=== PATIENT | female | born 1950 | race Caucasian/White ===

== ENCOUNTER → 2017-10-10 14:12 | Outpatient (CLI) | payer MEDICARE, OTHER, SELFPAY ==
--- NOTE | 2017-10-10 14:16 | DI.RAD.S_ITS ---
PROCEDURE: XR KNEE RT 3V INDICATIONS: RIGHT KNEE PAIN TECHNIQUE: 30 views of the knee were acquired. COMPARISON: None. FINDINGS: Bones: No fractures or dislocations. No suspicious bony lesions. There is severe lateral narrowing of the patellofemoral knee joint with [id number] contact and periventricular osteophyte formation. Mild narrowing of the medial femorotibial joint. Soft tissues: Small joint effusion. No suspicious soft tissue calcifications. IMPRESSION: 1. Severe lateral patellofemoral knee joint degeneration small effusion. Dictated by: John CAGE Interpreted: Yenny Newton MD on 10/10/2017 at 14:46 Approved by: Yenny Newton M.D. on 10/10/2017 at 16:54
== END ==
PROVIDERS: Visit Provider Physician Assistant
DX: M17.11 Unilateral primary osteoarthritis, right knee (principal); M25.561 Pain in right knee
CPT/HCPCS: 73562

== ENCOUNTER → 2018-05-21 09:37 | Outpatient (CLI) | payer MEDICARE, OTHER, SELFPAY | PROVIDERS: PCP Family Medicine; Visit Provider Family Medicine | DX: E03.9 Hypothyroidism, unspecified (principal) | CPT/HCPCS: 36415; 84443 ==

== ENCOUNTER → 2019-04-03 12:33 | Outpatient (CLI) | payer MEDICARE, OTHER, SELFPAY ==
[2019-04-03 13:22] LABS: Cholesterol 316 mg/dL (140-199); Glucose 98 mg/dL (80-110); HDL Cholesterol 91 mg/dL (40-60); LDL Cholesterol Calculated 213 mg/dL (<100); Triglycerides 61 mg/dL (35-150)
[2019-04-03 13:52] LABS: Thyroid Stimulating Hormone 4.46 uIU/mL (0.47-4.68)
== END ==
PROVIDERS: PCP Family Medicine; Visit Provider Family Medicine
DX: Z13.220 Encounter for screening for lipoid disorders (principal); Z13.1 Encounter for screening for diabetes mellitus; E03.9 Hypothyroidism, unspecified
CPT/HCPCS: 36415; 80061; 82947; 84443

== ENCOUNTER → 2019-05-01 13:37 | Outpatient (CLI) | payer MEDICARE, OTHER, SELFPAY ==
--- NOTE | 2019-05-01 13:38 | DI.ECHO.S_ITS ---
[facility]---------+ [facility] +---------+ : : [address] : [address] : : : : [id number] : : : : Phone: [phone] +---------+ Echocardiogram Report + + :Name: PENNY GASPAR V Study Date: 05/01/2019 Height: 62 in : :[facility] Weight: 155 lb : : Gender: Female BSA: 1.7 m2 : :: 1950 Age: 69 yrs BP: 140/90 mmHg: :Reason For Study: Aortic valve stenosis : : Performed By: Zee Velazquez : :Referring: MARIA LUISA ZHANG : + + Interpretation Summary There is moderate aortic valve stenosis. It appears mild to moderate by visual evaluation. Peak velocity is 2.7 m/s with dimensionless index of 0.36. The valve area calculation by continuity equation is probably underestimated related to LVOT Doppler signal. The valve area by planimetry is 1.4 bevel face stoner and polisher?. The indexed area is 0.82 bevel face stoner and polisher?/mA?. Visually there is no significant aortic valve stenosis either. Normal LV ejection fraction and grade 1 diastolic dysfunction. Pulmonary artery pressures cannot be estimated because of the lack of a measurable TR jet velocity but the IVC suggests a CVP of around 3 mmHg. Procedure: A two-dimensional transthoracic echocardiogram with color flow and Doppler was performed. The study quality was technically adequate. There is no prior echocardiogram noted for this patient. The patient was in normal sinus rhythm during the exam. Left Ventricle: The left ventricle is normal in size, wall thickness, and systolic function without any focal wall motion abnormalities. The ejection fraction is estimated to be 60-65%. Diastolic parameters suggest a relaxation abnormality of the left ventricle, consistent with probable normal filling pressures. Right Ventricle: The right ventricle is normal size. Right ventricular systolic function is normal by visual assessment. Atria: The left atrium is mildly dilated. Right atrial size is normal. There is no Doppler evidence for an interatrial shunt. Mitral Valve: The mitral valve leaflets appear mildly thickened, but open well. There is slight calcification extending into the subvalvular apparatus. There is mild mitral annular calcification. There is no mitral regurgitation noted. Aortic Valve: The aortic valve appears trileaflet with nodular calcification. The calculated aortic valve area is 1.0 cm2. The aortic valve area is 1.4 centimeters squared by planimetry. The peak aortic velocity is 2.7 m/sec. The aortic valve mean gradient is 18 mmHg. Severity ratio is 0.36. The aortic valve area indexed to the BSA is 0.60 . There is mild aortic regurgitation. Tricuspid Valve: The tricuspid valve leaflets are thin and pliable. There is trace tricuspid regurgitation. Pulmonary artery pressures cannot be estimated because of the lack of a measurable TR jet velocity but the IVC suggests a CVP of around 3 mmHg. Pulmonic Valve: The pulmonic valve is normal in structure and function. There is trace pulmonic regurgitation. Great Vessels: The aortic root is normal size. The ascending aorta is normal in size. The aortic arch is at the upper limits of normal in size. The IVC is of normal diameter and collapses greater than 50% with a sniff. This suggests a low right atrial pressure of 3 mm Hg. Pericardium/ Pleura There is no pericardial effusion. There is no pleural effusion. MMode/2D Measurements & Calculations LVIDd: 4.3 cm LVOT diam: 1.9 cm LVIDs: 2.2 cm Ao root diam: 3.3 cm FS: 49.1 % Aortic Jxn: 2.7 cm IVSd: 0.92 cm asc Aorta Diam: 3.4 cm LVPWd: 0.71 cm Ao Arch Diam (Prox Trans): 3.1 cm LV couch. diameter/BSA (cm/m^2): 2.5 LV sys. diameter/BSA (cm/m^2): 1.3 LA dimension: 3.9 cm RA long axis: 4.3 cm LA A2 area: 17.8 cm2 RA area: 14.1 cm2 LA A4 area: 18.4 cm2 RA vol: 38.9 ml LA length (vol): 4.8 cm RA : 22.6 ml/m2 LA vol: 58.3 ml IVC diam: 1.2 cm LA vol index: 34.0 ml/m2 RVDd major: 5.3 cm RVD1 (basal): 2.8 cm RVD2 (mid): 2.5 cm MIGUELITO (plan): 1.4 cm2 Doppler Measurements & Calculations Ao V2 max: 261.4 cm/sec LVOT Max Clemente: 89.4 cm/sec Ao V2 mean: 187.3 cm/sec LV V1 max P.2 mmHg Ao max P.4 mmHg LV V1 VTI: 19.4 cm Ao mean P.9 mmHg MIGUELITO(I,D): 1.0 cm2 Ao V2 VTI: 53.3 cm MIGUELITO(V,D): 0.97 cm2 sev ratio: 0.36 MIGUELITO indexed to BSA (cm^2/m^2): 0.60 MV E max clemente: 82.9 cm/sec TR max clemente: 207.8 cm/sec MV A max clemente: 119.9 cm/sec TR max P.3 mmHg MV E/A: 0.69 PA V2 max: 104.2 cm/sec Med Peak E' Clemente: 4.9 cm/sec PA V2 mean: 70.9 cm/sec E/E' med: 16.8 PA mean P.3 mmHg Lat Peak E' Clemente: 6.1 cm/sec PA Accel Time: 0.19 sec E/E' lat: 13.6 E/e' average: 15.2 MV dec time: 0.26 sec MV P1/2t: 77.0 msec MV P1/2t max clemente: 83.3 cm/sec SV(LVOT): 55.1 ml MVA(P1/2t): 2.9 cm2 Electronically signed by: Cornel Johns M.D. on Reading Physician:05/01/2019 07:09 PM
== END ==
PROVIDERS: PCP Family Medicine; Visit Provider Family Medicine
DX: I35.2 Nonrheumatic aortic (valve) stenosis with insufficiency (principal)
CPT/HCPCS: 93306

== ENCOUNTER → 2019-10-22 09:31 | Outpatient (CLI) | payer MEDICARE, OTHER, SELFPAY ==
[2019-10-22 11:20] LABS: Cholesterol 222 mg/dL (140-199); HDL Cholesterol 75 mg/dL (40-60); LDL Cholesterol Calculated 134 mg/dL (<100); Triglycerides 63 mg/dL (35-150)
[2019-10-22 11:49] LABS: Thyroid Stimulating Hormone 3.88 uIU/mL (0.47-4.68)
== END ==
PROVIDERS: PCP Family Medicine; Referring Provider Family Medicine; Visit Provider Family Medicine
DX: E03.9 Hypothyroidism, unspecified (principal); E78.5 Hyperlipidemia, unspecified
CPT/HCPCS: 36415; 80061; 84443

== ENCOUNTER → 2021-03-09 08:40 | Outpatient (CLI) | payer MEDICARE, OTHER, SELFPAY ==
[2021-03-09 09:36] LABS: Alanine Aminotransferase 31 IU/L (<35); Albumin 4.2 g/dL (3.5-5.0); Albumin Globulin Ratio 1.4 (1.0-2.8); Alkaline Phosphatase 109 U/L (38-126); Aspartate Aminotransferase 34 IU/L (14-36); BUN Creatinine Ratio 14.9 (6-22); Bilirubin Total 1.2 mg/dL (0.2-1.3); Blood Urea Nitrogen 14 mg/dL (7-17); Calcium 9.4 mg/dL (8.4-10.2); Carbon Dioxide 29 mmol/L (22-32); Chloride 102 mmol/L (98-107); Cholesterol 242 mg/dL (140-199); Estimated Glomerular Filt Rate 58.4 mL/min (>60); Globulin 2.9 g/dL (1.7-4.1); Glucose 94 mg/dL (80-110); HDL Cholesterol 93 mg/dL (40-60); HEMOLYSIS < 15 (0-50); LDL Cholesterol Calculated 136 mg/dL (<100); Potassium 4.3 mmol/L (3.4-5.1); Sodium 137 mmol/L (137-145); Total Protein 7.1 g/dL (6.3-8.2); Triglycerides 64 mg/dL (35-150)
[2021-03-09 10:03] LABS: TSH w/ Reflex to FT4 4.32 uIU/mL (0.47-4.68)
== END ==
PROVIDERS: PCP Family Medicine; Referring Provider Family Medicine; Visit Provider Family Medicine
DX: E03.9 Hypothyroidism, unspecified (principal); I35.0 Nonrheumatic aortic (valve) stenosis
CPT/HCPCS: 36415; 80053; 80061; 84443

== ENCOUNTER → 2021-06-21 14:29 | Outpatient (CLI) | payer MEDICARE, OTHER, SELFPAY ==
[2021-06-21 15:44] LABS: TSH w/ Reflex to FT4 2.38 uIU/mL (0.47-4.68)
[2021-06-22 20:45] LABS: Anti Thyroglobulin Antibody <1.0 IU/mL (0.0-0.9); Thyroid Peroxidase Antibodies <8 IU/mL (0-34)
== END ==
PROVIDERS: PCP Family Medicine; Referring Provider Family Medicine; Visit Provider Family Medicine
DX: E03.9 Hypothyroidism, unspecified (principal)
CPT/HCPCS: 36415; 84443; 86376; 86800

== ENCOUNTER → 2021-08-03 09:11 | Outpatient (CLI) | payer MEDICARE, OTHER, SELFPAY ==
[2021-08-03 10:24] LABS: Add Manual Diff / Slide Review NO; Basophils Absolute Auto 0 /uL (0-100); Basophils Percent Auto 0.8 % (0-2); Eosinophils Absolute Auto 300 /uL (0-450); Eosinophils Percent Auto 6.8 % (2-4); Hematocrit 41.2 % (36-46); Hemoglobin 14.3 g/dL (12.0-16.0); Lymphocytes Absolute Auto 1500 /uL (1100-4500); Lymphocytes Percent Auto 33.5 % (25-40); Mean Corpuscular HGB Conc 34.7 % (30-36); Mean Corpuscular Hemoglobin 32.2 PG (26-34); Mean Corpuscular Volume 92.9 fL (80-100); Monocytes Absolute Auto 400 /uL (0-900); Monocytes Percent Auto 7.8 % (3-14); Neutrophils Absolute Auto 2300 /uL (1500-7000); Neutrophils Percent Auto 51.1 % (50-75); Platelet Count 211 X10^3/uL (150-400); Red Blood Cell Count 4.43 X10^6/uL (4.0-5.2); Red Cell Distribution Width 13.8 % (11.6-14.8); White Blood Cell Count 4.6 X10^3/uL (4.5-11.0)
[2021-08-03 10:44] LABS: Hemoglobin A1C% w Est Avg Glu 4.9 % (4.0-6.0)
[2021-08-03 10:52] LABS: BUN Creatinine Ratio 15.3 (6-22); Blood Urea Nitrogen 15 mg/dL (7-17); Calcium 9.1 mg/dL (8.4-10.2); Carbon Dioxide 29 mmol/L (22-32); Chloride 103 mmol/L (98-107); Estimated Glomerular Filt Rate 55.6 mL/min (>60); Glucose 92 mg/dL (80-110); HEMOLYSIS < 15 (0-50); Potassium 4.5 mmol/L (3.4-5.1); Sodium 137 mmol/L (137-145)
== END ==
PROVIDERS: PCP Family Medicine; Referring Provider Family Medicine; Visit Provider Family Medicine
DX: E16.2 Hypoglycemia, unspecified (principal); E03.9 Hypothyroidism, unspecified
CPT/HCPCS: 36415; 80048; 83036; 85025

== ENCOUNTER → 2022-01-29 15:52 | Outpatient (CLI) | payer MEDICARE, OTHER, SELFPAY ==
--- NOTE | 2022-01-29 | DI.MG.S_ITS ---
BILATERAL DIGITAL SCREENING MAMMOGRAM 3D/2D WITH CAD: 01/29/2022 CLINICAL: Routine screening. Comparison is made to exams dated: 01/05/2018 mammogram, 12/16/2014 mammogram, and 01/21/2017 mammogram - outside location. Both breasts are heterogeneously dense, which may obscure small masses (category c / 51-75% glandular tissue). Current study was also evaluated with a Computer Aided Detection (CAD) system. There are benign vascular calcifications in both breasts. No significant masses, calcifications, or other findings are seen in either breast. There has been no significant interval change. IMPRESSION: BENIGN There is no mammographic evidence of malignancy. A 1 year screening mammogram is recommended. Based on the Tyrer Cuzick model (a risk assessment model) the patient's lifetime risk is 5.2% and her 10 year risk is 4.3%. According to the ACR, ACS, and NCCN guidelines, an annual breast MRI exam along with mammogram is recommended if the patient's lifetime risk is 20% or greater. This exam was interpreted at Station ID: [id number]. NOTE: For mammograms, a report in lay terms will be sent to the patient. Approximately 15% of breast malignancies will not be visualized mammographically. In the management of a palpable breast mass, a negative mammogram must not discourage biopsy of a clinically suspicious lesion. Electronically Signed By: Naren marquis/yesica:01/30/2022 07:54:19 letter sent: Normal Exam ACR BI-RADS Category 2: Benign Finding(s) 3342F
== END ==
PROVIDERS: PCP Family Medicine; Referring Provider Family Medicine; Visit Provider Family Medicine
DX: Z12.31 Encounter for screening mammogram for malignant neoplasm of breast (principal)
CPT/HCPCS: 77063; 77067

== ENCOUNTER → 2022-06-28 08:21 | Outpatient (CLI) | payer MEDICARE, OTHER, SELFPAY ==
[2022-06-28 09:53] LABS: Alanine Aminotransferase 20 IU/L (<35); Albumin 3.9 g/dL (3.5-5.0); Albumin Globulin Ratio 1.4 (1.0-2.8); Alkaline Phosphatase 73 U/L (38-126); Aspartate Aminotransferase 31 IU/L (14-36); BUN Creatinine Ratio 12.1 (6-22); Bilirubin Total 1.2 mg/dL (0.2-1.3); Blood Urea Nitrogen 11 mg/dL (7-17); Calcium 8.6 mg/dL (8.4-10.2); Carbon Dioxide 29 mmol/L (22-32); Chloride 99 mmol/L (98-107); Cholesterol 225 mg/dL (140-199); Estimated Glomerular Filt Rate > 60 mL/min (>60); Globulin 2.7 g/dL (1.7-4.1); Glucose 88 mg/dL (80-110); HDL Cholesterol 78 mg/dL (40-60); HEMOLYSIS < 15 (0-50); LDL Cholesterol Calculated 133 mg/dL (<100); Sodium 136 mmol/L (137-145); Total Protein 6.6 g/dL (6.3-8.2); Triglycerides 72 mg/dL (35-150)
[2022-06-28 10:17] LABS: TSH w/ Reflex to FT4 3.29 uIU/mL (0.47-4.68)
== END ==
PROVIDERS: PCP Family Medicine; Referring Provider Family Medicine; Visit Provider Family Medicine
DX: E78.5 Hyperlipidemia, unspecified (principal); E03.9 Hypothyroidism, unspecified
CPT/HCPCS: 36415; 80053; 80061; 84443

== ENCOUNTER → 2022-07-19 11:11 | Outpatient (CLI) | payer MEDICARE, OTHER, SELFPAY ==
--- NOTE | 2022-07-19 11:56 | DI.DEXA.S_ITS ---
Indication: postmenopausal; screening for osteoporosis; Referring Provider: MARIA LUISA ZHANG Study: Bone densitometry was performed. Exam Date: July 19, 2022 Accession number: [id number] Bone Density: Region BMD T-score Z-score Classification AP Spine(L1, L2, L3) 0.776 -2.2 0.1 Osteopenia Femoral Neck (Left) 0.564 -2.6 -0.5 Osteoporosis Total Hip (Left) 0.785 -1.3 0.5 Osteopenia Femoral Neck (Right) 0.592 -2.3 -0.3 Osteopenia Total Hip (Right) 0.789 -1.3 0.5 Osteopenia Total Hip Mean 0.787 -1.3 0.5 Osteopenia World Health Organization criteria for BMD impression classify patients as: Normal (T-score at or above -1.0), Osteopenia (T-score between -1.0 and -2.5), or Osteoporosis (T-score at or below -2.5). Impression: The patient has osteoporosis, based on the Left Femoral Neck T-score. Discussion: INCREASED RISK OF FRACTURE. BONE DENSITY IS UNDESIRABLY LOW AT ONE OR MORE SKELETAL SITES, CONSISTENT WITH POSTMENOPAUSAL OSTEOPOROSIS. This patient's lowest T-score meets the World Health Organization's (WHO) criteria for osteoporosis at one or more sites (T-score -2.5 or below). In untreated patients, the risk of osteoporotic fracture increases approximately two-fold for each 1.0 SD decrease in T-score. Low bone density is not the only risk factor for fracture; also consider factors such as patient's age, frailty or poor health, risk of falling, risk of injury, previous osteoporotic fracture, family history of osteoporosis, cigarette smoking, low body weight, etc. Not everyone with low bone mineral density has osteoporosis; osteomalacia and other metabolic bone disorders should also be considered. Patients who have osteoporosis should be evaluated for specific diseases and conditions (secondary causes) that may cause or contribute to bone loss. The [place] Association of Clinical Endocrinologists (AACE) and National Osteoporosis Foundation (NOF) recommend pharmacologic intervention for all postmenopausal women whose T-score is in this range. The patient should follow a healthful lifestyle (good nutrition with adequate calcium and vitamin D, and appropriate weight-bearing exercise). Follow-Up: Consider a repeat BMD and Vertebral Fracture Assessment (VFA) exam in 2 years or sooner if medically necessary, to reassess this patient's status. Reported by: Yannick Valenzuela M.D. on 07/19/2022 12:07:00 PM.
== END ==
PROVIDERS: PCP Family Medicine; Referring Provider Family Medicine; Visit Provider Family Medicine
DX: M81.0 Age-related osteoporosis without current pathological fracture (principal); Z13.820 Encounter for screening for osteoporosis; Z78.0 Asymptomatic menopausal state
CPT/HCPCS: 77080

== ENCOUNTER 2022-10-11 11:06 | Day surgery (SDC) | payer MEDICARE, OTHER, SELFPAY ==
--- NOTE | 2022-10-11 | PATH_ITS ---
[facility] Accession Number: [id number] No. of containers..01 Tissue . 01 Material submitted: . rectum - RECTAL POLYP . 01 Diagnosis: Rectal Polyps: Hyperplastic polyp x3. JOVI 10/17/2022 1157 Local . 01 Electronically signed: . Saul Lambert MD, PhD, Pathologist NPI- [id number] . 01 Gross description: . RECTAL POLYP: Received in formalin are 3 fragment(s) of mathews, soft tissue measuring 0.4 x 0.2 x 0.2 cm to 0.8 x 0.4 x 0.3 cm submitted entirely in 1 cassette(s) /LELE 10/15/2022 1857 Local . 01 Pathologist provided ICD-10: K62.1 . 01 CPT . 071768 Specimen Comment: A courtesy copy of this report has been sent to [phone] Performed at: 01 [facility] [address] [place] [address], [place], [place] [id number] MD Jasvir Campoverde MD Phone: [phone]
[2022-10-11 11:31] VITALS: BP 144/85; PULSE 70; RESP 16; TEMP 36.4; O2SAT 100; BMI 28.3
[2022-10-11] MEDS: LACTATED RINGERS 1,000 ML 100 ML IV (11:44)
--- NOTE | 2022-10-11 12:36 | P.HP_ITS ---
History of Present Illness History of Present Illness Date Patient Seen: 10/11/22 Time Patient Seen: 12:37 Chief complaint: [facility] Narrative: Lorraine is a 72-year-old woman who is here for colonoscopy. Her last 1 was about 4 years ago. She has always had polyps removed during all of her prior colonoscopies. No family history of colon cancer. [facility] Medical History (Updated 10/11/22 @ 12:37 by Vadim Darby MD) Abnormal Pap smear of cervix (~2011) Acne Actinic keratosis Anemia (~1970) Aortic stenosis (~1999) Chicken pox Colon polyps (~2007) Diverticular disease (~2007) Foot pain (~2013) Frequent UTI Heavy menstrual period Hemorrhoid History of urinary incontinence (~2014) Hypothyroidism (~1999) Measles Mumps Osteopenia (~2004) Plantar warts Recurrent sinusitis (~1965) Surgical History (Updated 03/19/18 @ 15:06 by Giovanna Gao) Anesthesia History of tonsillectomy (~1954) History of tubal ligation (~1974) Status post wrist surgery (~1976) Family History (Updated 03/19/18 @ 15:13 by Giovanna Gao) Father Pancreatic cancer Diabetes mellitus Mother No problems noted. Grandmother No problems noted. Grandfather Stroke Grandmother Heart disease Mental health problem Family/Other Mental health problem Social History marital status: number of children: 2 household members: spouse lives independently: Yes caregiver/support person: No housing: house pets and animals: No education level: college occupational status: other leisure activities: reading other: walks,knitting,sewing seatbelt use: always helmet use: Yes water heater temp set < 120 deg: Yes working smoke detector in home: Yes fire extinguisher in home: No carbon monox detector in home: Yes firearms in home: No Smoking Status: Never smoker second hand exposure: No alcohol intake: current substance use type: does not use during the past year weight has: decreased > 10 lbs well-balanced diet: daily or most days daily servings fruits/ve-4 caffeine: Yes eating out: rarely or never Type(s) of exercise: walking frequency: 3-4 times per week duration: 45-60 minutes/day Meds Home Medications and Allergies Home Medications Medication Instructions Recorded Confirmed Type calcium carbonate 600 mg-vitamin 1,200 tab PO DAILY 10/10/17 10/11/22 History D3 1,000 unit-vitamin K2 90 mcg tab levothyroxine 88 mcg tablet See Rx Instructions .Route 01/12/22 10/11/22 Rx .COMPLEX #90 tabs Allergies Allergy/AdvReac Type Severity Reaction Status Date / Time No Known Drug Allergies Allergy Verified 06/05/22 14:58 Exam Vital Signs (past 8 hours): - 10/11/22 11:31 Temperature 97.5 F L Pulse Rate 70 Respiratory Rate 16 Blood Pressure 144/85 H Pulse Oximetry 100 Oxygen Delivery Method Room Air Oxygen Delivery Method Room Air Const General: No acute distress Assessment & Plan Assessment and plan (1) History of colon polyps: Status: Acute Plan We reviewed the risks and benefits of colonoscopy for colon cancer screening and she would like to proceed
[2022-10-11 13:27] VITALS: BP 131/70; PULSE 80; RESP 16; TEMP 36.2; O2SAT 98
[2022-10-11 13:32] VITALS: BP 123/77; PULSE 69; RESP 16; TEMP 36.2; O2SAT 98
--- NOTE | 2022-10-11 13:32 | PM.OP.COLON ---
Operative Date/Time/Diagnoses Date of procedure: 10/11/22 Time of procedure: 13:32 Pre-op diagnosis: Colon cancer screening Post-op diagnosis: same Procedure & Clinicians Study performed: Colonoscopies Same procedure as scheduled: Yes Surgeon: Vadim Darby Procedure Notes Procedure in detail: Surgeon: Vadim Darby MD Anesthesia: Live Leos CRNA Procedure: The patient was brought to the endoscopy suite, placed in left lateral decubitus position. The patient was connected to monitoring devices. A time-out was performed. Sedation was administered. Once the patient was adequately sedated, a digital rectal exam was performed and was normal. The scope was then inserted and advanced to the cecum where the appendiceal orifice was identified and photographed. The scope was then slowly withdrawn over greater than 6 minutes. The mucosa was thoroughly inspected. There were 3 small polyps in the mid rectum removed with cold snare. There were sent together. The scope was retroflexed in the rectum. No other abnormalities were seen. The scope was straightened and removed. The patient was awakened and brought to recovery. Scope withdrawal time: 13 minutes Sedation time: 21 minutes EBL: 2 mL Findings: 3 small polyps in the rectum Post-procedure Disposition: PACU
[2022-10-11 13:37] VITALS: BP 103/65; PULSE 63; RESP 16; O2SAT 98
[2022-10-11 13:50] VITALS: BP 131/78; PULSE 78; RESP 16; TEMP 36.2; O2SAT 98
== END 2022-10-11 14:02 | disposition home or self-care (01) ==
PROVIDERS: PCP Family Medicine; Referring Provider Surgery; Visit Provider Surgery
PROC: 0DJD8ZZ Inspection of Lower Intestinal Tract, Via Natural or Artificial Opening Endoscopic (ICD-10-PCS; CPT 45378; principal; 2022-10-11 12:15)
DX: Z12.11 Encounter for screening for malignant neoplasm of colon (principal); Z86.010 Personal history of colon polyps; K62.1 Rectal polyp
CPT/HCPCS: 45385; J2704

== ENCOUNTER → 2022-10-29 14:35 | Outpatient (CLI) | payer MEDICARE, OTHER, SELFPAY ==
[2022-10-29 16:57] LABS: C-Reactive Protein Quant < 0.5 mg/dL (<1.0)
[2022-10-29 16:58] LABS: Rheumatoid Factor 10.7 IU/mL (<12.0)
[2022-10-29 20:23] LABS: Erythrocyte Sedimentation Rate 17 MM/HR (0-20)
[2022-10-30 21:56] LABS: CCP Antibodies IgG/IgA 4 units (0-19)
== END ==
PROVIDERS: PCP Family Medicine; Referring Provider Family Medicine; Visit Provider Family Medicine
DX: M25.50 Pain in unspecified joint (principal)
CPT/HCPCS: 36415; 85651; 86140; 86200; 86430

== ENCOUNTER → 2022-11-08 11:10 | Outpatient (CLI) | payer MEDICARE, OTHER, SELFPAY ==
--- NOTE | 2022-11-08 11:12 | DI.RAD.S_ITS ---
PROCEDURE: XR KNEE LT 3V INDICATIONS: L knee pain TECHNIQUE: 3 views of the knee were acquired. COMPARISON: [facility], CR, XR KNEE RT 3V, 10/10/2017, 14:02. FINDINGS: Bones: There is heterogenous osteolytic lesion in the lateral tibial metaphysis of the proximal tibia. No evidence of pathologic fracture. Patellofemoral joint space narrowing with subchondral cysts Soft tissues: Moderate joint effusion IMPRESSION: Heterogenous osteolytic lesion in the lateral tibial metaphysis. Metastatic disease is primary differential. Consider follow-up MR or CT Approved by: Jac Noriega M.D. on 11/08/2022 at 19:09
== END ==
PROVIDERS: PCP Family Medicine; Referring Provider Family Medicine; Visit Provider Family Medicine
DX: M25.562 Pain in left knee (principal); M89.9 Disorder of bone, unspecified
CPT/HCPCS: 73562

== ENCOUNTER → 2022-11-16 07:37 | Outpatient (CLI) | payer MEDICARE, OTHER, SELFPAY ==
--- NOTE | 2022-11-16 07:38 | DI.MRI.S_ITS ---
PROCEDURE: MR KNEE LT WO/W CON INDICATIONS: L knee pain, f/u XR TECHNIQUE: Noncontrast sagittal PD fast spin echo and T2 fast spin echo with fat saturation, sagittal 3-D FLASH with fat saturation; coronal T1 spin echo and PD fast spin echo with fat saturation, and axial T1 spin echo and PD fast spin echo with fat saturation through the knee. Post-contrast axial, coronal, and sagittal T1 spin echo with fat saturation through the knee. COMPARISON: [facility], CR, XR KNEE RT 3V, 10/10/2017, 14:02. [facility], CR, XR KNEE LT 3V, 11/08/2022, 11:10. FINDINGS: Image quality: Excellent. Menisci: Peripheral displacement of medial meniscus bowing medial collateral ligament is seen. Complex oblique tear involving posterior horn of medial meniscus is seen extending to inferior articulating surface. The lateral meniscus is intact. The meniscal root ligaments appear intact. Cruciate ligaments: Degenerative changes versus low-grade partial-thickness tear involving proximal anterior cruciate ligament near its femoral insertion is seen. The posterior cruciate ligament is intact. Medial structures: The medial collateral ligament appears mildly thickened. The posterior oblique ligament, semimembranosus tendon insertions, and oblique popliteal liagment, and meniscocapsular junction appear intact. Visualized portions of the pes anserinus tendons appear normal. No abnormal bursal fluid. Lateral structures: The lateral collateral ligament, long and short heads of the biceps femoris tendon appear intact. The popliteus tendon appears normal; the popliteofibular ligament appears intact. Iliotibial band appears normal. Anterior structures: The quadriceps and patellar tendons appear intact. Patellar alignment is normal. No femoral trochlear dysplasia or ventral trochlear prominence. No edema in the infrapatellar fat pad. Bones and cartilage: Severe osteoarthritic changes and high-grade chondromalacia are noted involving lateral patellofemoral compartment with near complete loss of joint space, extensive subchondral sclerosis and cyst formations as well as adjacent marrow edema. No fracture or dislocation is noted. Large lobulated and septated cystic structure is noted involving medial portion of proximal tibia with mild adjacent marrow edema and measures up to 2.6 x 3.4 x 4 cm in largest transverse, AP and craniocaudal dimensions.. After IV contrast infusion, peripheral ring mint Madi mint of this structure is noted. Internal area of enhancement is also seen in anterior and superior portion of this structure. No other area of abnormal intraosseous enhancement is seen. No acute fracture or dislocation. Significant thinning of cortex involving medial cortex of proximal tibia is noted adjacent to the above-mentioned lesion. Moderate medial femoral tibial compartment osteoarthritis and moderate grade chondromalacia is also seen. Joint space: There is physiologic knee joint fluid. No Chow's cyst. Normal appearing synovial plicae are incidentally noted. No suspicious soft tissue enhancement. IMPRESSION: 1. 2.6 x 3.4 x 4 cm lobulated and septated cystic lesion involving proximal tibia with mild adjacent edema and peripheral rim enhancement. Thinning of anteromedial cortex of proximal tibia adjacent to this mass is also noted. Finding may represent benign intraosseous cyst secondary to osteoarthritis. Cystic neoplastic process cannot be entirely excluded. 2. Moderate to severe tricompartmental osteoarthritis and chondromalacia most notably in lateral portion of patellofemoral compartment as above. No other area of abnormal intraosseous enhancement. 3. Complex oblique tear involving posterior horn of medial meniscus extending to inferior articulating surface. No focal lateral meniscal tear. 4. Degenerative changes versus low-grade partial-thickness tear involving proximal ACL near its femoral insertion. The PCL is intact. 5. Low-grade MCL sprain. No enhancing soft tissue mass. Dictated by: Javier Arita M.D. on 11/16/2022 at 10:47 Approved by: Javier Arita M.D. on 11/16/2022 at 11:17
== END ==
PROVIDERS: PCP Family Medicine; Referring Provider Family Medicine; Visit Provider Family Medicine
DX: S83.232A Complex tear of medial meniscus, current injury, left knee, initial encounter (principal); S83.412A Sprain of medial collateral ligament of left knee, initial encounter; M17.12 Unilateral primary osteoarthritis, left knee; M22.42 Chondromalacia patellae, left knee; M25.562 Pain in left knee
CPT/HCPCS: 73723; A9579

== ENCOUNTER → 2022-11-23 09:12 | Outpatient (CLI) | payer MEDICARE, OTHER, SELFPAY ==
--- NOTE | 2022-11-23 09:13 | DI.ECHO.S_ITS ---
[facility]---------+ [facility] +---------+ : : [address] : : : : [id number] : : : : Phone: [phone] +---------+ Echocardiogram Report + + :Name: PENNY GASPAR V Study Date: 11/23/2022 Height: 62 in : :[facility] ReadingLocation: Weight: 145 lb : : Gender: Female BSA: 1.7 m2 : :: 1950 Age: 72 yrs BP: 131/80 mmHg: :Reason For Study: Aortic Valve Stenosis : :Ordering Physician: LEATHA, : :MARIA LUISA Performed By: Sallie Cardoso : :Referring: MARIA LUISA ZHANG : + + Interpretation Summary The ejection fraction is estimated to be 60-65%. The right ventricle is normal in size and function. There is moderate aortic stenosis. Compared to the prior study dated 05/01/2019, the aortic valve gradients have increased. Procedure: A two-dimensional transthoracic echocardiogram with color flow and Doppler was performed in limited views only. The study quality was technically adequate. Comparison is made with the echocardiogram of 05/01/2019. The patient was in normal sinus rhythm during the exam. Left Ventricle: The left ventricle is normal in size. There is normal left ventricular wall thickness. The ejection fraction is estimated to be 60-65%. Right Ventricle: The right ventricle is normal in size and function. Mitral Valve: There is moderate mitral annular calcification. The mitral valve leaflets appear mildly thickened, but open well. Aortic Valve: The aortic valve is heavily calcified. There is moderate aortic stenosis. The peak aortic velocity is 3.15 m/sec. The aortic valve mean gradient is 23 mmHg. The dimensionless index is 0.30. There is mild aortic regurgitation. Tricuspid Valve: The tricuspid valve is normal. Great Vessels: The ascending aorta is at the upper limits of normal in size. The IVC is of normal diameter and collapses greater than 50% with a sniff. This suggests a low right atrial pressure of 3 mm Hg. MMode/2D Measurements & Calculations LVOT diam: 1.7 cm LVLs ap4: 5.3 cm Ao root diam: 2.6 cm asc Aorta Diam: 3.5 cm LVLd ap2: 6.0 cm LVLs ap2: 4.7 cm Doppler Measurements & Calculations Ao V2 max: 311.6 cm/sec LVOT Max Clemente: 94.1 cm/sec Ao V2 mean: 219.4 cm/sec LV V1 max P.5 mmHg Ao max P.0 mmHg LV V1 VTI: 21.8 cm Ao mean P.6 mmHg MIGUELITO(I,D): 0.70 cm2 Ao V2 VTI: 70.9 cm MIGUELITO(V,D): 0.69 cm2 sev ratio: 0.31 MIGUELITO indexed to BSA (cm^2/m^2): 0.42 SV(LVOT): 49.5 ml AV P1/2t-pr_phl: 608.2 msec AV VR_phl: 0.30 MIGUELITO(VTI)/BSA_phl: 0.42 Reading Physician:04:20 PM
== END ==
PROVIDERS: PCP Family Medicine; Referring Provider Family Medicine; Visit Provider Family Medicine
DX: I08.0 Rheumatic disorders of both mitral and aortic valves (principal)
CPT/HCPCS: 93307

== ENCOUNTER → 2023-02-28 08:08 | Outpatient (CLI) | payer MEDICARE, OTHER, SELFPAY ==
--- NOTE | 2023-02-28 | DI.MG.S_ITS ---
BILATERAL DIGITAL SCREENING MAMMOGRAM 3D/2D WITH CAD: 02/28/2023 CLINICAL: Routine screening. Family history of breast cancer. Comparison is made to exams dated: 01/29/2022 mammogram - [facility], 01/05/2018 mammogram, and 01/21/2017 mammogram - outside location. Both breasts are heterogeneously dense, which may obscure small masses (category c / 51-75% glandular tissue). Current study was also evaluated with a Computer Aided Detection (CAD) system. There is a benign vascular calcification in both breasts. There is a focal asymmetry in the left breast at 1 o'clock posterior depth. There is architectural distortion associated with the focal asymmetry. No other significant masses, calcifications, or other findings are seen in either breast. IMPRESSION: INCOMPLETE: NEEDS ADDITIONAL IMAGING EVALUATION The focal asymmetry in the left breast is indeterminate. Additional views with possible ultrasound are recommended. Based on the Tyrer Cuzick model (a risk assessment model) the patient's lifetime risk is 4.5% and her 10 year risk is 4.5%. According to the ACR, ACS, and NCCN guidelines, an annual breast MRI exam along with mammogram is recommended if the patient's lifetime risk is 20% or greater. This exam was interpreted at Station ID: [id number]. NOTE: For mammograms, a report in lay terms will be sent to the patient. Approximately 15% of breast malignancies will not be visualized mammographically. In the management of a palpable breast mass, a negative mammogram must not discourage biopsy of a clinically suspicious lesion. Electronically Signed By: Yenny tellez/yesica:02/28/2023 17:04:36 letter sent: Additional Imaging Needed ACR BI-RADS Category 0: Incomplete [id number]
== END ==
PROVIDERS: PCP Family Medicine; Referring Provider Family Medicine; Visit Provider Family Medicine
DX: Z12.31 Encounter for screening mammogram for malignant neoplasm of breast (principal); Z80.3 Family history of malignant neoplasm of breast; N64.89 Other specified disorders of breast
CPT/HCPCS: 77063; 77067

== ENCOUNTER → 2023-03-26 09:19 | Outpatient (CLI) | payer MEDICARE, OTHER, SELFPAY ==
--- NOTE | 2023-03-26 | DI.MG.S_ITS ---
UNILATERAL LEFT DIGITAL DIAGNOSTIC MAMMOGRAM 3D/2D WITH ADDITIONAL VIEWS: 03/26/2023 CLINICAL: Additional evaluation requested from prior study. Comparison is made to exams dated: 02/28/2023 mammogram - [facility], 01/05/2018 mammogram - outside [facility], and 01/29/2022 mammogram - [facility]. The left breast is heterogeneously dense, which may obscure small masses (category c / 51-75% glandular tissue). There is a benign vascular calcification in the left breast. There is a 1 cm focal asymmetry with a spiculated margin in the left breast at 3 o'clock middle depth 4 cm from the nipple. No other significant masses or calcifications are seen in the breast. IMPRESSION: INCOMPLETE: NEEDS ADDITIONAL IMAGING EVALUATION The 1 cm focal asymmetry in the left breast is indeterminate. An ultrasound is recommended. Based on the Tyrer Cuzick model (a risk assessment model) the patient's lifetime risk is 4.5% and her 10 year risk is 4.5%. According to the ACR, ACS, and NCCN guidelines, an annual breast MRI exam along with mammogram is recommended if the patient's lifetime risk is 20% or greater. This exam was interpreted at Station ID: [id number]. NOTE: For mammograms, a report in lay terms will be sent to the patient. Approximately 15% of breast malignancies will not be visualized mammographically. In the management of a palpable breast mass, a negative mammogram must not discourage biopsy of a clinically suspicious lesion. Electronically Signed By: Cristofer Gomez M.D. acr/:03/26/2023 10:03:06 ACR BI-RADS Category 0: Incomplete 3340F
--- NOTE | 2023-03-26 09:20 | DI.US.S_ITS ---
PROCEDURE: US BREAST LT LIMITED COMPARISON: None. INDICATIONS: FOCAL ASYMMETRY - ABNORMAL MAMMOGRAM FOLLOW UP FINDINGS: IMPRESSION: Dictated by: Cristofer Gomez M.D. on 03/26/2023 at 10:28 Approved by: Cristofer Gomez M.D. on 03/26/2023 at 10:35
--- NOTE | 2023-03-26 10:15 | DI.US.S_ITS ---
Patient Name: PENNY GASPAR date: 1950 Sex: F Attending Physician: Michele Indications: Date: 03/26/2023 10:34 At the request of: MARIA LUISA ZHANG Procedure: US breast LT limited LIMITED ULTRASOUND OF LEFT BREAST: 03/26/2023 CLINICAL: Patient returns today to evaluate a focal asymmetry in the left breast. Comparison is made to exams dated: 03/26/2023 mammogram, 02/28/2023 mammogram, 01/29/2022 mammogram - [facility], 01/05/2018 mammogram, 01/21/2017 mammogram, and 12/16/2014 mammogram - outside location. Color flow and real-time ultrasound of the left breast were performed. There is a new 9 mm solid mass with a spiculated margin in the left breast at 3 o'clock posterior depth 4 cm from the nipple. This solid mass is hypoechoic with posterior acoustic shadowing. There also is a 1 cm x 0.5 cm x 1 cm mass in the left breast at 3 o'clock posterior depth 4 cm from the nipple. This mass is hypoechoic with posterior acoustic shadowing. IMPRESSION: HIGHLY SUGGESTIVE OF MALIGNANCY The new 9 mm solid mass in the left breast at 3 o'clock posterior depth is highly suggestive of malignancy. An ultrasound guided biopsy is recommended. The 1 cm x 0.5 cm x 1 cm mass in the left breast at 3 o'clock posterior depth is at a high suspicion for malignancy. An ultrasound guided biopsy is recommended. Continued Report - Page 2 of 2 Patient Name: PENNY GASPAR date: 1950 Sex: F Attending Physician: Michele Indications: Date: 03/26/2023 10:34 At the request of: MARIA LUISA ZHANG Procedure: US breast LT limited This exam was interpreted at Station ID: [id number]. Electronically Signed By: Cristofer Gomez M.D. acr/:03/26/2023 10:34:37 letter sent: Biopsy Required Ultrasound BI-RADS: 5 Highly suggestive of malignancy
== END ==
PROVIDERS: PCP Family Medicine; Referring Provider Family Medicine; Visit Provider Family Medicine
DX: R92.8 Other abnormal and inconclusive findings on diagnostic imaging of breast (principal); R92.30 Dense breasts, unspecified; N63.25 Unspecified lump in the left breast, overlapping quadrants
CPT/HCPCS: 76642; 77065; G0279

== ENCOUNTER → 2023-04-10 07:30 | Outpatient (CLI) | payer MEDICARE, OTHER, SELFPAY ==
--- NOTE | 2023-04-10 | DI.MG.S_ITS ---
UNILATERAL LEFT DIGITAL DIAGNOSTIC MAMMOGRAM 3D/2D - LEFT BREAST POST-NEEDLE BIOPSY: 04/10/2023 CLINICAL: Post left breast ultrasound biopsy, clip placment imaging. Comparison is made to exams dated: 03/26/2023 mammogram, 02/28/2023 mammogram, 01/29/2022 mammogram - [facility], and 01/05/2018 mammogram - outside location. The left breast is heterogeneously dense, which may obscure small masses (category c / 51-75% glandular tissue). clip in expected location IMPRESSION: POST PROCEDURE MAMMOGRAM FOR MARKER PLACEMENT clip in expected location. Based on the Tyrer Cuzick model (a risk assessment model) the patient's lifetime risk is 4.5% and her 10 year risk is 4.5%. According to the ACR, ACS, and NCCN guidelines, an annual breast MRI exam along with mammogram is recommended if the patient's lifetime risk is 20% or greater. This exam was interpreted at Station ID: [id number]. NOTE: For mammograms, a report in lay terms will be sent to the patient. Approximately 15% of breast malignancies will not be visualized mammographically. In the management of a palpable breast mass, a negative mammogram must not discourage biopsy of a clinically suspicious lesion. Electronically Signed By: Edwin Harrell M.D. mf/:04/11/2023 15:39:06 ACR BI-RADS Category Post-procedure mammogram for marker placement
--- NOTE | 2023-04-10 | PATH_ITS ---
[facility] Accession Number: [id number] No. of containers..01 Tissue . 01 Material submitted: . breast - LEFT BREAST 3:00 4CMFN (9MM MASS) . 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 - Corsica score is 9 out of 9 possible (histologic=3, nuclear=3, mitotic rate=3); Grade 3. - In situ carcinoma: Present, ductal, with solid and cribriform architecture, intermediate grade nuclei. - Lymphovascular invasion: Not identified. - Calcifications: Not identified. - Greatest linear extent of invasive carcinoma: 0.7 cm, as measured from the glass slide. - Predictive markers: Pending by immunohistochemistry, reported as an addendum. MRV 04/12/2023 1501 Local . 01 Comment: The results of this case are verbally providedc by Dr. Moses to Nurse Cristina Hirolf on 04/12/2023 at 2:15 p.m. . 01 Electronically signed: . Quin Moses MD, Pathologist NPI- [id number] . 01 Gross description: . Received in one formalin-filled container, labeled with the patient's name and designated left breast 3 o'clock 4 cm FN 9 mm mass are three yellow-reyes to reyes-mathews, cylindrical-shaped portions of tissue which range in length from 1.0 cm to 2.0 cm, average diameter of 0.2-0.3 cm. The specimen is entirely submitted in one cassette. Possible collection date and time per requisition: 04/10/2023 at 0919. Total fixation time: Approximately 18 hours. ([id number]) /FRR 04/11/2023 0537 Local . 01 Pathologist provided ICD-10: C50.912 . 01 CPT . 356043, 696555, 692546, 442404 Performed at: 01 [facility] [address] [place] [address] [id number] MD Jasvir Campoverde MD Phone: [phone]
--- NOTE | 2023-04-10 07:32 | DI.US.S_ITS ---
ULTRASOUND GUIDED BIOPSY LEFT BREAST WITH MARKING DEVICE INSERTED: 04/10/2023 CLINICAL: Left breast mass. PATIENT CONSENT: Risks (minor bleeding, infection, vasovagal reaction and repeat procedure), benefits and alternatives were explained to the patient and written informed consent was obtained. Correlation is made to exams dated: 04/10/2023 mammogram, 03/26/2023 ultrasound, 03/26/2023 mammogram, 01/29/2022 mammogram, 02/28/2023 mammogram - [facility], and 01/05/2018 mammogram - outside location. An ultrasound guided biopsy using real-time ultrasound was performed for the mass located in the left breast at 1 o'clock posterior depth. The skin was prepped in the usual manner. Local anesthetic was administered to the access site. A skin jodee was made in the breast. The abnormality was approached from the lateral aspect. A 16 gauge biopsy needle was placed adjacent to the abnormality under ultrasound guidance. Once the needle was documented to be in the correct location, three specimens were obtained using a BARD biopsy device. A clip was inserted into the biopsy cavity. A sterile dressing was applied to the access site. Post procedure imaging demonstrates the location device at the targeted area. The specimens were sent to the laboratory for pathological analysis. IMPRESSION: ULTRASOUND GUIDED BIOPSY MALIGNANT Ultrasound guided biopsy of the mass in the left breast at 1 o'clock posterior depth was successful. Pathology indicates malignant invasive ductal carcinoma (ID) and ductal carcinoma in situ (DCIS). Pathology results are concordant with imaging findings. A surgical/oncologic consultation is recommended. This exam was interpreted at Station ID: [id number]. Edwin Palomo M.D. ,aty/:04/15/2023 16:40:17
== END ==
PROVIDERS: PCP Family Medicine; Referring Provider Family Medicine; Visit Provider Family Medicine
DX: Z91.89 Other specified personal risk factors, not elsewhere classified (principal); C50.812 Malignant neoplasm of overlapping sites of left female breast; Z17.1 Estrogen receptor negative status [ER-]
CPT/HCPCS: 19083; 77065

== ENCOUNTER → 2024-02-26 15:01 | Outpatient (CLI) | payer MEDICARE, OTHER, SELFPAY ==
[2024-02-26 16:05] LABS: Alanine Aminotransferase 29 IU/L (<35); Albumin 4.2 g/dL (3.5-5.0); Albumin Globulin Ratio 1.6 (1.0-2.8); Alkaline Phosphatase 110 U/L (38-126); Aspartate Aminotransferase 35 IU/L (14-36); BUN Creatinine Ratio 16.2 (6-22); Bilirubin Total 0.9 mg/dL (0.2-1.3); Blood Urea Nitrogen 17 mg/dL (7-17); Calcium 9.2 mg/dL (8.4-10.2); Carbon Dioxide 29 mmol/L (22-32); Chloride 102 mmol/L (98-107); Estimated Glomerular Filt Rate 55 mL/min (>60); Globulin 2.6 g/dL (1.7-4.1); Glucose 89 mg/dL (80-110); HEMOLYSIS < 15 (0-50); Potassium 4.3 mmol/L (3.4-5.1); Sodium 138 mmol/L (137-145); Total Protein 6.8 g/dL (6.3-8.2)
[2024-02-26 16:13] LABS: NT-proBNP (BNP-Adult 18+) 267 pg/mL (<450)
[2024-02-26 16:30] LABS: Creatinine Urine Random 59.55 mg/dL; Protein (Total) Urine Random 8 mg/dL (0-12); Protein Creatinine Ratio Urine 0.13 GRAM/24H
== END ==
LOC: LAB 15:02
PROVIDERS: PCP Family Medicine; Referring Provider Family Medicine; Visit Provider Family Medicine
DX: M79.89 Other specified soft tissue disorders (principal)
CPT/HCPCS: 36415; 80053; 82570; 83880; 84156

== ENCOUNTER → 2024-03-12 13:32 | Outpatient (CLI) | payer MEDICARE, OTHER, SELFPAY ==
[2024-03-12 18:27] LABS: Blood Urea Nitrogen 14 mg/dL (7-17); Calcium 9.4 mg/dL (8.4-10.2); Carbon Dioxide 27 mmol/L (22-32); Chloride 102 mmol/L (98-107); Estimated Glomerular Filt Rate 58 mL/min (>60); Glucose 82 mg/dL (80-110); HEMOLYSIS < 15 (0-50); Potassium 4.3 mmol/L (3.4-5.1); Sodium 136 mmol/L (137-145)
== END ==
PROVIDERS: PCP Family Medicine; Referring Provider Family Medicine; Visit Provider Family Medicine
DX: E86.0 Dehydration (principal); N28.9 Disorder of kidney and ureter, unspecified; R60.0 Localized edema; M79.89 Other specified soft tissue disorders; I35.0 Nonrheumatic aortic (valve) stenosis
CPT/HCPCS: 36415; 80048

== ENCOUNTER → 2024-04-04 09:04 | Outpatient (CLI) | payer MEDICARE, OTHER, SELFPAY ==
--- NOTE | 2024-04-04 09:05 | DI.ECHO.S_ITS ---
[facility] : : [address] : : [id number] : : Phone: [phone] Echocardiogram Report + + :Name: PENNY GASPAR V Study Date: 04/04/2024 Height: 62 in : :Hospital ReadingLocation: Weight: 147 lb : : Gender: Female BSA: 1.7 m2 : :: 1950 Age: 74 yrs BP: 137/80 mmHg: :Reason For Study: AORTIC STENOSIS : :Ordering Physician: LEATHA, : :MARIA LUISA Performed By: Cate Mackay : :Referring: MARIA LUISA ZHANG : + + Interpretation Summary Limited Echo: 1) Normal left ventricular thickness, size, wall motion, and systolic function (EF 60-65%). 2) Normal right ventricular size and function. 3) There is moderate aortic stenosis (valve area 0.7cm2, mean gradient 36mmHg, severity ratio 0.28). Visually, aortic stenosis also appears moderate. 4) There is mild aortic regurgitation. 5) Compared to the Echo done 11/23/2022, stroke volume has increased from 49.5cc to 72cc and this explains the mean gradient increase from 22mmHg to 36mmHg. Procedure: Images were not obtained from all of the standard acoustic windows due to the limited scope of the study. The study quality was technically adequate. Comparison is made with the echocardiogram of 11/23/2022. The patient was in sinus rhythm with heart rates between 63-70 bpm during the exam. Left Ventricle: The left ventricle is normal in size and wall thickness. The ejection fraction is estimated to be 60-65%. Left ventricular systolic function appears normal without focal wall motion abnormalities. Mitral Valve: There is moderate mitral annular calcification. Aortic Valve: The aortic valve is trileaflet. The aortic valve is heavily calcified. There is moderately reduced leaflet mobility. The peak aortic velocity is 3.9 m/sec. The aortic valve mean gradient is 36 mmHg. The calculated aortic valve area is 0.74 cm2. There is moderate aortic stenosis. There is mild aortic regurgitation. Pericardium/ Pleura There is no pericardial effusion. There is no pleural effusion. MMode/2D Measurements & Calculations LVIDd: 4.4 cm LVOT diam: 1.9 cm LVIDs: 2.6 cm Ao root diam: 2.7 cm FS: 41.1 % asc Aorta Diam: 3.4 cm EPSS: 0.96 cm IVSd: 0.83 cm LVPWd: 0.75 cm LV couch. diameter/BSA (cm/m^2): 2.6 LV sys. diameter/BSA (cm/m^2): 1.5 Doppler Measurements & Calculations Ao V2 max: 390.8 cm/sec LVOT Max Clemente: 107.6 cm/sec Ao V2 mean: 273.1 cm/sec LV V1 max P.6 mmHg Ao max P.3 mmHg LV V1 VTI: 25.5 cm Ao mean P.0 mmHg MIGUELITO(I,D): 0.80 cm2 Ao V2 VTI: 90.2 cm MIGUELITO(V,D): 0.78 cm2 sev ratio: 0.28 MIGUELITO indexed to BSA (cm^2/m^2): 0.48 AI P1/2t: 487.8 msec AI dec slope: 211.5 cm/sec2 SV(LVOT): 72.0 ml Reading Physician:03:15 PM
== END ==
PROVIDERS: PCP Family Medicine; Referring Provider Family Medicine; Visit Provider Family Medicine
DX: I34.81 Nonrheumatic mitral (valve) annulus calcification (principal); I35.2 Nonrheumatic aortic (valve) stenosis with insufficiency
CPT/HCPCS: 93307

== ENCOUNTER 2024-05-22 07:43 | Emergency (ER) | payer MEDICARE, OTHER, SELFPAY ==
[2024-05-22] VITALS (9 sets, daily range): BP systolic 122–139; BP diastolic 56–79; PULSE 67–92; RESP 16–24; TEMP 36.7–36.9; O2SAT 97–100; BMI 26.9
--- NOTE | 2024-05-22 07:49 | ED.CHESTPAIN ---
HPI - Chest Pain General Chief Complaint: Chest Pain Stated Complaint: sharp pain in chest Time Seen by Provider: 05/22/24 07:48 Source: patient, RN notes reviewed, old records reviewed and other (sent from walk in clinic) Mode of arrival: Ambulatory Limitations: no limitations History of Present Illness HPI narrative: 74-year-old female with history of lumpectomy as well as mastectomy, chemo and radiation for breast cancer now in remission, aortic stenosis, hypothyroidism who presents with complaint of left-sided chest pain. Patient states this morning she had a very brief episode of left-sided chest pain which he described as sharp seemed to be associated with each heartbeat for 5 beats. She was lying flat when this occurred in bed at 4:00 a.m. this morning. Patient states she has had episodes occasionally over the past several months but always very brief and then resolved she presents today because she had has a little bit increased frequency with reoccurring yesterday and several days before that. She does have history of some pain status post surgery in that area but states no new redness swelling or skin changes. She has not had any fevers no cold cough or congestion symptoms. She states she walks 3 miles yesterday without any symptoms and has been physically active without any issues. No shortness of breath. No diaphoresis. No nausea or vomiting. No other GI or urinary symptoms. Noted she would some mild swelling in the past several months saw her primary care who told her to wear compression stockings. Patient states levothyroxine as her only current medication. She has had mastectomy, lumpectomy, tonsillectomy, surgical repair of wrist fracture. No tobacco, quit alcohol year ago, no recreational drugs. Does follow up with primary care and gets regular surveillance with Oncology. No long distance travel or history of blood clots. Patient did have a echo to monitor her aortic stenosis in the past month which she states was moderate. Related Data Home Medications Medication Instructions Recorded Confirmed calcium 600 mg (as carbonate)-vit 1,200 tab PO DAILY 10/10/17 02/26/24 D3 1,000 unit-vitamin K2 90 mcg tab ascorbic acid (vitamin C) 1,000 mg 1 g PO DAILY 02/26/24 02/26/24 capsule Previous Rx's Medication Instructions Recorded levothyroxine 88 mcg tablet 88 mcg PO QAM #90 tabs 08/23/23 Allergies Allergy/AdvReac Type Severity Reaction Status Date / Time No Known Drug Allergies Allergy Verified 02/26/24 14:24 Review of Systems Review of Systems ROS Unobtainable: All systems reviewed & are unremarkable except as noted in HPI and below Patient History Medical History Plantar warts Actinic keratosis Acne Osteopenia (~2004) Foot pain (~2013) Mumps Measles Chicken pox Anemia (~1970) Recurrent sinusitis (~1965) Heavy menstrual period Abnormal Pap smear of cervix (~2011) History of urinary incontinence (~2014) Frequent UTI Hemorrhoid Diverticular disease (~2007) Colon polyps (~2007) Hypothyroidism (~1999) Aortic stenosis (~1999) Surgical History Anesthesia Status post wrist surgery (~1976) History of tubal ligation (~1974) History of tonsillectomy (~1954) Family History Father Pancreatic cancer Diabetes mellitus Mother No problems noted. Grandmother No problems noted. Grandfather Stroke Grandmother Heart disease Mental health problem Family/Other Mental health problem Social History marital status: number of children: 2 household members: spouse lives independently: Yes caregiver/support person: No housing: house pets and animals: No education level: college occupational status: other leisure activities: reading other: walks,knitting,sewing seatbelt use: always helmet use: Yes water heater temp set < 120 deg: Yes working smoke detector in home: Yes fire extinguisher in home: No carbon monox detector in home: Yes firearms in home: No Smoking Status: Never smoker second hand exposure: No alcohol intake: current substance use type: does not use during the past year weight has: decreased > 10 lbs well-balanced diet: daily or most days daily servings fruits/ve-4 caffeine: Yes eating out: rarely or never Type(s) of exercise: walking frequency: 3-4 times per week duration: 45-60 minutes/day Smoking Status: Never smoker alcohol intake frequency: holidays/special occasions only Exam Narrative Exam Narrative: GENERAL: Alert and oriented x three, female in no acute distress HEENT: Head normocephalic, atraumatic, EOMI, pupils reactive, face symmetric, moist mucous membranes NECK: Supple, full range of motion CARDIOVASCULAR: Regular rate and rhythm with 3/6 systolic ejection murmur best heard at the right upper sternum, no rubs or gallops. No JVD. No edema bilateral lower extremities. No reproducible chest pain. RESPIRATORY: Breath sounds equal bilaterally, no wheezes rales or rhonchi. No tachypnea. No accessory muscle use. ABDOMEN: Soft, nontender. Normoactive bowel sounds all 4 quadrants. No guarding or rebound, rigidity, no mass : No CVA tenderness EXTREMITIES: Normal range of motion, no clubbing or edema. Neurovascularly intact NEUROLOGICAL: Cranial nerves II through XII grossly intact. Moving all extremities SKIN: Warm, dry, no petechiae, no rashes or lesions. Initial Vital Signs Initial Vital Signs: Vital Signs Temperature 98.0 F 05/22/24 07:57 Pulse Rate 92 H 05/22/24 07:57 Respiratory Rate 18 05/22/24 07:57 Blood Pressure 139/79 05/22/24 07:57 Pulse Oximetry 100 05/22/24 07:57 Oxygen Delivery Method Room Air 05/22/24 07:57 Scores HEART Score Heart Score history: Slightly Suspicious Heart Score EKG: Normal Heart Score Age: > or = 65 years old Heart Score risk factors: No known risk factors Heart Score troponin: < or = to normal limit Heart Score Total: 2 Course Orders Ordered: ED Orders 05/22/24 09:55 Trop I [Troponin I] Stat 05/22/24 10:00 EKG-12 Lead Stat Vital Signs Vital signs: Vital Signs - 8 hr 05/22/24 11:00 05/22/24 11:00 05/22/24 11:21 Temperature 98.4 F Pulse Rate 71 77 Respiratory Rate 16 18 Blood Pressure 125/64 Pulse Oximetry 97 98 Oxygen Delivery Method Room Air MDM - Chest Pain Lab Data 05/22/24 08:00 05/22/24 08:00 Labs: Lab Results 05/22/24 05/22/24 Range/Units 08:00 09:55 WBC 4.4 L (4.5-11.0) X10^3/uL RBC 4.35 (4.0-5.2) X10^6/uL Hgb 14.1 (12.0-16.0) g/dL Hct 40.3 (36-46) % MCV 92.6 (80-100) fL MCH 32.5 (26-34) PG MCHC 35.1 (30-36) % RDW 13.9 (11.6-14.8) % Plt Count 214 (150-400) X10^3/uL Neut % (Auto) 52.9 (50-75) % Lymph % (Auto) 32.4 (25-40) % [place] % (Auto) 10.0 (3-14) % Eos % (Auto) 4.0 (2-4) % Baso % (Auto) 0.7 (0-2) % Neut # (Auto) 2300 (3796-6580) /uL Lymph # (Auto) 1400 (6511-8675) /uL [place] # (Auto) 400 (0-900) /uL Eos # (Auto) 200 (0-450) /uL Baso # (Auto) 0 (0-100) /uL Sodium 136 L (137-145) mmol/L Potassium 3.9 (3.4-5.1) mmol/L Chloride 102 (98-107) mmol/L Carbon Dioxide 29 (22-32) mmol/L BUN 15 (7-17) mg/dL Creatinine 0.87 (0.52-1.04) mg/dL Estimated GFR > 60 (>60) mL/min BUN/Creatinine Ratio 17.2 (6-22) Glucose 97 (80-110) mg/dL Calcium 9.2 (8.4-10.2) mg/dL Total Bilirubin 1.1 (0.2-1.3) mg/dL AST 38 H (14-36) IU/L ALT 27 (<35) IU/L Alkaline Phosphatase 99 (38-126) U/L Total Creatine Kinase 87 (30-135) U/L Troponin I < 0.012 < 0.012 (0.01-0.034) ng/mL NT-Pro-B Natriuret Pep 156 (<450) pg/mL Total Protein 6.9 (6.3-8.2) g/dL Albumin 4.3 (3.5-5.0) g/dL Globulin 2.6 (1.7-4.1) g/dL Albumin/Globulin Ratio 1.7 (1.0-2.8) Lipase 265 (23-300) U/L Imaging Data Chest x-ray: Radiologist's Impression: [address] [address] XRay Report Signed Patient: Lorraine Raymond V MR#: [id number] : 1950 Acct:[id number] Age/Sex: 74 / F Date of Service: 05/22/24 Loc: ED Accession Number: [id number] Procedure: XR chest 1V Ordering Provider: Gisel Lyon D.O. PROCEDURE: XR CHEST 1V INDICATIONS: chest pain TECHNIQUE: One view of the chest was acquired. COMPARISON: None. FINDINGS: Surgical changes and devices: Left breast and axillary clips Lungs and pleura: Lungs are clear. No pleural effusions or pneumothorax. Mediastinum: Mediastinal contours appear normal. Heart size is normal. Bones and chest wall: No suspicious bony lesions. Overlying soft tissues appear unremarkable. IMPRESSION: No acute cardiopulmonary abnormality is seen. Dictated by: Warren Liang M.D. on 05/22/2024 at 8:38 Approved by: Warren Liang M.D. on 05/22/2024 at 8:40 ECG Data Attestation: I personally reviewed and interpreted this ECG as follows: Prior ECG tracings: not available for review Interpretation: Sinus rhythm rate 81 SD 162 QRS 82 QTC of 476, no acute ST changes appreciated. No prior for comparison. Repeat EKG shows sinus rhythm rate of 68 SD 160 QRS is 78 QTC of 469, no acute ST elevation, patient has some nonspecific change. MDM Narrative Medical decision making narrative: 74-year-old female history of breast cancer in remission but did have some pain status post scarring from her prior surgeries. Patient does have known aortic stenosis had recent echo in the last month and a half that showed normal EF with moderate aortic stenosis. She describes feeling several beats of pain this morning med each episode has been very brief for a few seconds at the most. Patient had echo on 04/04/2024 showed normal left ventricular thickness size wall motion and systolic function with an EF of 60-65% normal right ventricular size and function moderate aortic stenosis, mild aortic regurg. EKG shows sinus rhythm no acute ST changes appreciated priors for comparison. Labs labs show white count of 4.4 but otherwise normal platelets and hemoglobin. Sodium 136 normal potassium chloride CO2 and BUN creatinine of 0.87 bilirubin is 1.1 AST is 38 ALT is normal with a alk-phos of 99 and a lipase of 265 troponins less than 0.012 with a BNP of 156. Repeat troponin is less than 0.012 Chest x-ray shows no acute change Heart score is 2 Discussed with the patient patient had brief few seconds of discomfort early this morning no persistent symptoms workup today She was has a history of aortic stenosis with with recent echo in March which showed moderate change. Patient felt appropriate for discharge home with follow up with primary care. Patient feels comfortable with this plan this time. Discharge Plan Departure Patient Disposition: Home Clinical Impression: Chest pain Instructions: DI for Chest Pain Activity Restrictions/Additional Instructions: Follow up with your primary care physician for recheck. Please return if you have new or worsening symptoms, new chest pain or shortness of breath, lightheadedness or passing out, fevers, new redness swelling or skin changes, new swelling of your extremities or other or concerning changes. Prescriptions: No Action ascorbic acid (vitamin C) 1,000 mg capsule 1 g PO DAILY calcium carb-vitamin D3-vit K2 600 mg-1,000 unit-90 mcg tablet 1,200 tab PO DAILY levothyroxine 88 mcg tablet 88 mcg PO QAM Qty: 90 3RF Referrals: Cristina Bautista MD [Primary Care Provider] - Stand Alone Forms: Patient Portal/API/Survey
--- NOTE | 2024-05-22 07:55 | EKG_ITS ---
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
--- NOTE | 2024-05-22 07:57 | DI.RAD.S_ITS ---
PROCEDURE: XR CHEST 1V INDICATIONS: chest pain TECHNIQUE: One view of the chest was acquired. COMPARISON: None. FINDINGS: Surgical changes and devices: Left breast and axillary clips Lungs and pleura: Lungs are clear. No pleural effusions or pneumothorax. Mediastinum: Mediastinal contours appear normal. Heart size is normal. Bones and chest wall: No suspicious bony lesions. Overlying soft tissues appear unremarkable. IMPRESSION: No acute cardiopulmonary abnormality is seen. Dictated by: Warren Liang M.D. on 05/22/2024 at 8:38 Approved by: Warren Liang M.D. on 05/22/2024 at 8:40
[2024-05-22 08:12] LABS: Add Manual Diff / Slide Review NO; Basophils Absolute Auto 0 /uL (0-100); Basophils Percent Auto 0.7 % (0-2); Eosinophils Absolute Auto 200 /uL (0-450); Hematocrit 40.3 % (36-46); Hemoglobin 14.1 g/dL (12.0-16.0); Lymphocytes Absolute Auto 1400 /uL (1100-4500); Lymphocytes Percent Auto 32.4 % (25-40); Mean Corpuscular HGB Conc 35.1 % (30-36); Mean Corpuscular Hemoglobin 32.5 PG (26-34); Mean Corpuscular Volume 92.6 fL (80-100); Monocytes Absolute Auto 400 /uL (0-900); Neutrophils Absolute Auto 2300 /uL (1500-7000); Neutrophils Percent Auto 52.9 % (50-75); Platelet Count 214 X10^3/uL (150-400); Red Blood Cell Count 4.35 X10^6/uL (4.0-5.2); Red Cell Distribution Width 13.9 % (11.6-14.8); White Blood Cell Count 4.4 X10^3/uL (4.5-11.0)
[2024-05-22 08:33] LABS: Alanine Aminotransferase 27 IU/L (<35); Albumin 4.3 g/dL (3.5-5.0); Albumin Globulin Ratio 1.7 (1.0-2.8); Alkaline Phosphatase 99 U/L (38-126); Aspartate Aminotransferase 38 IU/L (14-36); BUN Creatinine Ratio 17.2 (6-22); Bilirubin Total 1.1 mg/dL (0.2-1.3); Blood Urea Nitrogen 15 mg/dL (7-17); Calcium 9.2 mg/dL (8.4-10.2); Carbon Dioxide 29 mmol/L (22-32); Chloride 102 mmol/L (98-107); Creatine Kinase 87 U/L (30-135); Estimated Glomerular Filt Rate > 60 mL/min (>60); Globulin 2.6 g/dL (1.7-4.1); Glucose 97 mg/dL (80-110); HEMOLYSIS < 15 (0-50); Lipase 265 U/L (23-300); Potassium 3.9 mmol/L (3.4-5.1); Sodium 136 mmol/L (137-145); Total Protein 6.9 g/dL (6.3-8.2)
[2024-05-22 08:40] LABS: NT-proBNP (BNP-Adult 18+) 156 pg/mL (<450)
[2024-05-22 08:43] LABS: Troponin I < 0.012 ng/mL (0.01-0.034)
--- NOTE | 2024-05-22 09:05 | PC.NURSE ---
Pt sitting up in gurney. Appears in NAD. Denies pain at this time. Discussed plan of care, understands.
--- NOTE | 2024-05-22 10:07 | EKG_ITS ---
[facility] [address] [address] Test Date: 2024-05-22 Pat Name: Lorraine Raymond Department: [facility] Room: Gender: Female [employer]: BRIAN : 1950 Requested By: Order Number: [id number] Reading MD: Miguel Aleman MD Measurements Intervals [place] Rate: 68 P: 40 IL: 160 QRS: 26 QRSD: 78 T: 42 QT: 442 QTc: 469 Interpretive Statements Normal sinus rhythm Nonspecific T wave abnormality Electronically Signed On 05-22-2024 15:50:47 PST by Miguel Aleman MD
[2024-05-22 10:28] LABS: Troponin I < 0.012 ng/mL (0.01-0.034)
== END 2024-05-22 11:37 | disposition home or self-care (01) ==
PROVIDERS: Emergency Provider Emergency Medicine; PCP Family Medicine
DX: R07.9 Chest pain, unspecified (principal)
CPT/HCPCS: 36415; 71045; 80053; 82550; 83690; 83880; 84484; 85025; 93005; 93010; 99283; 99284

== ENCOUNTER → 2024-11-20 08:11 | Outpatient (CLI) | payer MEDICARE, OTHER, SELFPAY ==
[2024-11-20 09:25] LABS: Cholesterol 238 mg/dL (140-199); Glucose 94 mg/dL (70-99); HDL Cholesterol 78 mg/dL (40-60); Triglycerides 80 mg/dL (35-150)
[2024-11-20 10:04] LABS: Thyroid Stimulating Hormone 6.42 uIU/mL (0.47-4.68)
[2024-11-20 10:22] LABS: Hep C Virus Ab w/Reflex Quant NEGATIVE s/c (NEGATIVE)
== END ==
PROVIDERS: PCP Family Medicine; Referring Provider Family Medicine; Visit Provider Family Medicine
DX: Z13.220 Encounter for screening for lipoid disorders (principal); E03.9 Hypothyroidism, unspecified; Z13.9 Encounter for screening, unspecified
CPT/HCPCS: 36415; 80061; 82947; 84443; 86803